=== PATIENT | male | born 1960 | race Caucasian/White ===

== ENCOUNTER 2018-01-26 18:10 | Inpatient (IN) | payer OTHER ==
[~2018-01-26] VITALS: Ht 172.7 cm; Wt 110.2 kg
[2018-01-26 18:14] VITALS: BP 139/72
[2018-01-26] MEDS ORDERED: NORVASC10 MG PO (18:18)
[2018-01-26] MEDS ORDERED: CELEXA10 MG PO (18:18)
[2018-01-26] MEDS ORDERED: CARVEDILOL12.5 MG PO (18:18)
[2018-01-26] MEDS ORDERED: LISINOPRIL10 MG PO (18:19)
[2018-01-26] MEDS ORDERED: HYDRALAZINE 5050 MG PO (18:19)
[2018-01-26] MEDS ORDERED: PROTONIX 20 MG20 M1 PO (18:20)
[2018-01-26 18:41] LABS: ABSOLUTE BASOPHILS 0.1 thou/uL (0.0-0.2); ABSOLUTE EOSINOPHILS 0.3 thou/uL (0.0-0.7); ABSOLUTE LYMPHOCYTES 1.6 thou/uL (0.8-5.3); ABSOLUTE MONOCYTES 1.1 thou/uL (0.0-1.2); ABSOLUTE NEUTROPHILS 6.8 thou/uL (1.6-8.1); EOSINOPHILS 3.2 %; HEMATOCRIT 44.1 % (42.0-52.0); HEMOGLOBIN 15.3 gm/dL (14.0-18.0); LYMPHOCYTES 16.2 %; MCH 28.5 pg (26.0-34.0); MCHC 34.8 g/dL (28.0-37.0); MCV 81.9 fL (80.0-100.0); MONOCYTES 11.4 %; MPV 8.9 fl. (7.2-11.1); NUCLEATED RBCS 0 /100WBC; PLATELET COUNT* 190 thou/uL (150-400); POLYS 68.2 %; RBC 5.38 mil/uL (4.50-6.00); RDW-CV 14.5 % (10.5-14.5)
[2018-01-26 18:47] LABS: CREATININE 2.4 mg/dL (0.6-1.3)
[2018-01-26 18:52] LABS: ALBUMIN 4.1 g/dL (3.4-5.0); TOTAL BILIRUBIN 0.8 mg/dL (<0.1-1.0); TOTAL PROTEIN 8.7 g/dL (6.4-8.2)
[2018-01-26 19:27] LABS: INFLUENZA A ANTIGEN None Detected (None Detect); INFLUENZA B ANTIGEN None Detected (None Detect)
[2018-01-26 21:09] LABS: URINE BILIRUBIN NEGATIVE (Negative); URINE BLOOD NEGATIVE (Negative); URINE CLARITY CLEAR; URINE COLOR YELLOW; URINE GLUCOSE-RANDOM NEGATIVE (Negative); URINE KETONES NEGATIVE (Negative); URINE LEUKOCYTES-REFLEX NEGATIVE (Negative); URINE NITRITE-REFLEX NEGATIVE (Negative); URINE PROTEIN NEGATIVE (Negative); URINE UROBILINOGEN 0.2 E.U./dl (0.2-1.0)
[2018-01-26 21:42] VITALS: BP 127/66
[2018-01-26 22:45] VITALS: BP 145/88
[2018-01-27 00:29] VITALS: BP 103/56
[2018-01-27 07:45] VITALS: BP 131/74
[2018-01-27 13:21] LABS: CALCIUM 8.7 mg/dL (8.5-10.1); CREATININE 1.9 mg/dL (0.6-1.3); MAGNESIUM 1.6 mg/dL (1.8-2.4); POTASSIUM 4.3 mmol/L (3.5-5.1)
[2018-01-27 17:02] VITALS: BP 125/79
[2018-01-27 20:00] VITALS: BP 130/86
[2018-01-28 04:28] LABS: HEMOGLOBIN 13.7 gm/dL (14.0-18.0); MCH 27.8 pg (26.0-34.0); MCHC 34.2 g/dL (28.0-37.0); MCV 81.3 fL (80.0-100.0); MPV 9.2 fl. (7.2-11.1); NUCLEATED RBCS 0 /100WBC; PLATELET COUNT* 175 thou/uL (150-400); RBC 4.92 mil/uL (4.50-6.00); RDW-CV 14.4 % (10.5-14.5); WBC 11.8 thou/uL (4.0-11.0)
[2018-01-28 05:03] LABS: ALBUMIN 3.6 g/dL (3.4-5.0); CALCIUM 8.9 mg/dL (8.5-10.1); CREATININE 1.7 mg/dL (0.6-1.3); POTASSIUM 4.5 mmol/L (3.5-5.1); TOTAL BILIRUBIN 0.3 mg/dL (<0.1-1.0); TOTAL PROTEIN 7.4 g/dL (6.4-8.2)
[2018-01-28 05:25] LABS: ABSOLUTE LYMPHOCYTES 0.9 thou/uL (0.8-5.3); ABSOLUTE MONOCYTES 0.1 thou/uL (0.0-1.2); ABSOLUTE NEUTROPHILS 10.7 thou/uL (1.6-8.1); ANISOCYTOSIS 1+; PLATELET ESTIMATE ADEQUATE; POIKILOCYTOSIS 1+
[2018-01-28 05:27] VITALS: BP 144/87
[2018-01-28 08:08] VITALS: BP 133/74
--- NOTE | 2018-01-28 12:13 | CON ---
[address] [address] CONSULTATION Name: RIN LOWERY Room: [address] IN M.R.#: [id number] Admission: 01/26/18 Attend Phys: Jose Gr Discharge: Date of : 62 Report #: [id number] THIS REPORT FOR: //name// CC: Everardo Rodríguez DATE OF SERVICE: 01/27/2018 CONSULT REQUESTED BY: Dr. Griffith. HISTORY OF PRESENT ILLNESS: This is a 57-year-old gentleman whose past medical history includes a history of stroke. He previously had a tracheostomy, which has now been removed for about 3 years. The patient has never used tobacco products; however, he does report a history of using weed. He reports a history of kidney disease; however, he does not remember the details. The patient now has presented with an acute viral illness. The patient has had significant clear nasal discharge as well as postnasal drip. Reports having had a fairly significant increase in shortness of breath as well as cough, but not much sputum production for the last several days. There is no chest pain. There is no swelling of lower extremities. There is no calf pain. There is no fever. He does have a clinical history consistent with obstructive sleep apnea he has not previously been diagnosed. The patient does report dysphagia. He reports that this has not changed compared with his baseline. REVIEW OF SYSTEMS: A 12-point review of systems is negative except as mentioned above. PAST MEDICAL HISTORY: Stroke with intracranial hemorrhage 3 years ago with right-sided weakness, which has improved, but there is some residual right-sided weakness even now. The patient did have a tracheostomy at some point, which has now been reversed. The patient reports having had ongoing dysphagia for a long period of time, but no change recently. He reports a history of kidney disease. He does not know his baseline creatinine. His creatinine noted to be 2.4 on admission. Depression, gastroesophageal reflux disease, hepatitis C, hypertension, hyperlipidemia. I do not have a measure of his left ventricular ejection fraction available. ALLERGIES: PENICILLIN. SOCIAL HISTORY: He reports a history of smoking weed. No known history of use of tobacco products, other drug use or heavy alcohol use. CURRENT MEDICATIONS: List in [facility] reviewed. HOME MEDICATIONS: List [place] [address] CONSULTATION Name: RIN LOWERY [address] [id number] Admission: 01/26/18 Attend Phys: Jose Gr Discharge: Date of : 62 Report #: [id number] PHYSICAL EXAMINATION: GENERAL: He is alert, awake and oriented. He is on 2 liters nasal cannula. He is saturating in the high 90s. VITAL SIGNS: Has a pulse of 88 and a blood pressure of 131/74, his respiratory rate is 16. HEENT: Head is normocephalic and atraumatic. Pupils are equal and reactive. There is no throat erythema. Airway; however, is fairly narrow, is around Mallampati 4. NECK: Does not show raised JVP. CHEST: Breath sounds bilaterally equal, decreased, expirations are prolonged. There are loud bilateral expiratory as well as inspiratory wheezes heard. HEART: Regular, no murmur. ABDOMEN: Soft and nontender. LOWER EXTREMITIES: Show no edema, no calf tenderness. LABORATORY DATA: The patient's chest x-ray as well as lab work are in [facility] and these are reviewed. ASSESSMENT AND PLAN: 1. Acute respiratory insufficiency secondary to bronchospasm. The patient appears to have developed a viral respiratory tract infection leading to severe bronchospasm, which is the etiology of his acute respiratory insufficiency. 2. Severe bronchospasm. The patient does not have a history of previous lung disease. He also does not have a history of smoking cigarettes in the past. The possibility the patient may have underlying bronchial asthma is not ruled out. The bronchospasm may also be new secondary to his viral respiratory tract infection. Regardless in the short term, the treatment is with nebulized bronchodilators as well as Solu-Medrol, DuoNeb, and Solu-Medrol already ordered. I ordered Brovana as well. 3. Viral respiratory tract infection. Until his viral respiratory panel is back, we will give him Tamiflu and recommend placing him in droplet precautions. While it primarily appears that he has a viral infection, I note that he does have Levaquin ordered. I feel that this is reasonable as possibility of secondary bacterial infection cannot be ruled out. 4. Acute renal failure. He is receiving IV fluids per the hospitalist service. I agree. 5. Dysphagia. Suggest obtaining a video swallow. 6. Possible underlying obstructive sleep apnea. Recommend an outpatient sleep study. 7. History of stroke with right-sided weakness and previous history of tracheostomy. Discussion as above. [address] [place] [address] CONSULTATION Name: SAMPLE,RIN E Room: [address] IN .R.#: [id number] Admission: 01/26/18 Attend Phys: Jose Gr Discharge: Date of : 62 Report #: [id number] Thanks for this consultation. <ELECTRONICALLY SIGNED> By: Jason Gtz MD 01/28/18 1213 [id number] Gtz MD /nt
[2018-01-28] MEDS ORDERED: ALBUTEROL2.5 MG/31 INH (12:19)
[2018-01-28] MEDS ORDERED: PREDNISONE 10 M10 MG PO (12:21)
[2018-01-28] MEDS ORDERED: LEVAQUIN 750 M750 MG PO (12:22)
[2018-01-28] MEDS ORDERED: TYLENOL325 MG PO (12:25)
[2018-01-28] MEDS ORDERED: [UNRECOGNIZED DRUG - OTHER] PO (12:25)
[2018-01-28] MEDS ORDERED: DELSYM30 MG/5 M1 PO (12:27)
[2018-01-28] MEDS ORDERED: MILK OF MA2400 MG/10 PO (12:28)
[2018-01-28] MEDS ORDERED: MUCINEX600 MG PO (12:28)
[2018-01-28 12:31] VITALS: BP 133/74
[2018-01-28 17:21] VITALS: BP 138/72
[2018-02-01 02:07] LABS: ADENOVIRUS Negative (Negative); INFLUENZA A Negative (Negative); INFLUENZA B Negative (Negative); METAPNEUMOVIRUS Negative (Negative); PARAINFLUENZA 1 Negative (Negative); PARAINFLUENZA 2 Negative (Negative); PARAINFLUENZA 3 Negative (Negative); RHINOVIRUS Positive (Negative); RSV A Negative (Negative); RSV B Negative (Negative)
== END 2018-01-28 18:17 | disposition home or self-care (01) | DRG 682 ==
LOC: M.ERS 18:10 → M.TBA-ER 20:30 → M.ORTHSURG 20:30
PROVIDERS: Internal Medicine; Nurse Practitioner Family; ADMIT Internal Medicine
DX: N17.9 Acute kidney failure, unspecified (principal); R65.11 Systemic inflammatory response syndrome (SIRS) of non-infectious origin with acute organ dysfunction; J80 Acute respiratory distress syndrome; I69.351 Hemiplegia and hemiparesis following cerebral infarction affecting right dominant side; F32.9 Major depressive disorder, single episode, unspecified; K21.9 Gastro-esophageal reflux disease without esophagitis; I10 Essential (primary) hypertension; E78.5 Hyperlipidemia, unspecified; J20.9 Acute bronchitis, unspecified; B18.2 Chronic viral hepatitis C; Z79.899 Other long term (current) drug therapy; Z88.0 Allergy status to penicillin

== ENCOUNTER 2018-10-09 10:51 | Emergency (ER) | payer OTHER ==
[~2018-10-09] VITALS: Ht 172.7 cm; Wt 108.9 kg
[~2018-10-09 10:51] MED LIST: ALBUTEROL2.5 MG/31 INH; CARVEDILOL12.5 MG PO; CELEXA10 MG PO; DELSYM30 MG/5 M1 PO; HYDRALAZINE 5050 MG PO; LEVAQUIN 750 M750 MG PO; LISINOPRIL10 MG PO; MILK OF MA2400 MG/10 PO; MUCINEX600 MG PO; NORVASC10 MG PO; PREDNISONE 10 M10 MG PO; PROTONIX 20 MG20 M1 PO; TYLENOL325 MG PO; [UNRECOGNIZED DRUG - OTHER] PO
[2018-10-09 10:59] VITALS: BP 111/70
[2018-10-09] MEDS ORDERED: KEFLEX500 M1 PO (11:04)
[2018-10-09] MEDS ORDERED: NORCO 5-325 TA1 EACH PO (11:15)
== END 2018-10-09 11:18 | disposition home or self-care (01) ==
LOC: M.ERS 10:51
DX: K02.9 Dental caries, unspecified (principal); Z88.0 Allergy status to penicillin

== ENCOUNTER 2021-11-15 10:52 | Emergency (ER) | payer OTHER ==
[~2021-11-15 10:52] MED LIST changes: +KEFLEX500 M1 PO; +NORCO 5-325 TA1 EACH PO
== END 2021-11-15 11:42 | disposition left against medical advice (07) ==
LOC: M.ERS 10:52
DX: R10.9 Unspecified abdominal pain (principal); Z53.21 Procedure and treatment not carried out due to patient leaving prior to being seen by health care provider